=== PATIENT | female | born 1995 | race Caucasian/White ===

== ENCOUNTER 2018-10-28 23:21 | Emergency (ER) | payer OTHER, BC ==
[2018-10-28 23:34] VITALS: BP 138/83
[2018-10-29] MEDS ORDERED: HYDROCODONE/ACETAMINOPHEN 5-325 MG TABLET PO ONE (00:23)
[2018-10-29] MEDS ORDERED: CEPHALEXIN 500 MG CAPSULE PO ONE (00:23)
[2018-10-29] MEDS ORDERED: BUPIVACAINE HCL 0.5 % INJ/PF 30 ML SDV INJ ONE (00:24)
--- NOTE | 2018-10-29 00:25 | ER Document Report ---
Addendum entered and electronically signed by JORDYN PAULA NP 10/29/18 02:46: Course - Vital Signs Vital signs: Temp Pulse Resp BP Pulse Ox 98.5 F 75 18 138/83 H 100 10/28/18 23:30 10/28/18 23:30 10/28/18 23:30 10/28/18 23:30 10/28/18 23:30 Procedures - Immobilization Left Thumb Pre-Proc Neuro Vasc Exam: Normal Immobilizer type: Finger splint (Static) Performed by: PCT Post-Proc Neuro Vasc Exam: Normal Alignment checked and good: Yes - Laceration/Wound Repair Left Thumb Wound length (cm): 2 Wound's Depth, Shape: Irregular Anesthetic type: 0.5% Bupivacaine Addendum entered and electronically signed by JORDYN PAULA NP 10/29/18 02:42: Discharge - Discharge Clinical Impression: Laceration of left thumb Qualifiers: Encounter type: initial encounter Damage to nail status: with damage Foreign body presence: without foreign body Qualified Code(s): S61.112A - Laceration without foreign body of left thumb with damage to nail, initial encounter Fracture of thumb, left, open Qualifiers: Encounter type: initial encounter Phalanx: distal Fracture alignment: displaced Qualified Code(s): S62.522B - Displaced fracture of distal phalanx of left thumb, initial encounter for open fracture Condition: Stable Disposition: HOME, SELF-CARE Instructions: Cephalexin ([facility]), Fractured Finger ([facility]), Laceration Care ([facility]), Oral Narcotic Medication ([facility]), Prophylactic Antibiotic ([facility]), Temporary Splint ([facility]) Additional Instructions: Return immediately for any new or worsening symptoms Followup with your primary care provider, call tomorrow to make a followup appo intment Follow-up with Dr. Zepeda, call their office tomorrow to make a follow-up appointment Prescriptions: Cephalexin Monohydrate [Keflex 500 mg Capsule] 500 mg PO Q6H 7 Days capsule Hydrocodone/Acetaminophen [Salix 5-325 mg Tablet] 1 tab PO Q6 PRN #15 tablet PRN Reason: Forms: Return to Work Referrals: ALANIS ZEPEDA DO [ACTIVE STAFF] - Follow up tomorrow Original Note: HPI - HPI Patient complains to provider of: thumb injury Time Seen by Provider: 10/29/18 00:17 Onset: Just prior to arrival Onset/Duration: Sudden Quality of pain: Sharp Pain Level: 5 Context: Patient accidentally closed her left thumb in a safe while at work. Patient is right-hand dominant. Patient with laceration to left thumb that involves the nail. Associated Symptoms: Other - Left thumb injury Exacerbated by: Movement Relieved by: Denies Similar symptoms previously: No Recently seen / treated by doctor: No - ROS ROS below otherwise negative: Yes Systems Reviewed and Negative: Yes All other systems reviewed and negative - GASTROINTESTINAL Gastrointestinal: DENIES: Nausea - MUSCULOSKELETAL Musculoskeletal: REPORTS: Extremity pain - lac to base of thumbnail, Swelling - DERM Skin Problems: Laceration Past Medical History - General Information source: Patient - Social History Smoking Status: Never Smoker Chew tobacco use (# tins/day): No Frequency of alcohol use: None Drug Abuse: None Occupation: [employer] Lives with: Family Family History: Reviewed & Not Pertinent Patient has suicidal ideation: No Patient has homicidal ideation: No - Medical History Medical History: Negative Renal/ Medical History: Denies: Hx Peritoneal Dialysis Past Surgical History: Reports: Hx Adenoidectomy, Hx Tonsillectomy - Immunizations Immunizations up to date: Yes Hx Diphtheria, Pertussis, Tetanus Vaccination: Yes Vertical Provider Document - CONSTITUTIONAL Agree With Documented VS: Yes Exam Limitations: No Limitations General Appearance: WD/WN, No Apparent Distress - INFECTION CONTROL TRAVEL OUTSIDE OF THE [place] IN LAST 30 DAYS: No - HEENT HEENT: Atraumatic, Normocephalic - NECK Neck: Normal Inspection - RESPIRATORY Respiratory: No Respiratory Distress - CARDIOVASCULAR Pulses: Normal: Radial - MUSCULOSKELETAL/EXTREMETIES Musculoskeletal/Extremeties: MAEW, Tender - left thumb lac with partial nail avulsion - NEURO Level of Consciousness: Awake, Alert, Appropriate Motor/Sensory: No Motor Deficit - DERM Integumentary: Warm, Dry, Laceration Notes: Patient with laceration to left thumb over distal phalanx that involves the nail plate. Patient with avulsed fingernail to left thumb. Proximal edge of nail plate lacerated laterally, radial aspect of nail plate avulsed and skin overlying this area the nail plate avulsed as well. Course - Re-evaluation Re-evalutation: 10/29/18 02:22 Dr. Santos to bedside for consultation on wound repair. No additional closure methods advised at this time. Recommends outpatient follow-up with orthopedics for further management. Patient advised that she may completely lose the nail and not regrow the nail given the trauma to the nail plate. - Vital Signs Vital signs: Temp Pulse Resp BP Pulse Ox 98.5 F 75 18 138/83 H 100 10/28/18 23:30 10/28/18 23:30 10/28/18 23:30 10/28/18 23:30 10/28/18 23:30 Procedures - Laceration/Wound Repair Left Thumb Wound length (cm): 2 Wound's Depth, Shape: Irregular Laceration pre-procedure: Shur-Clens applied Anesthetic type: 0.5% Bupivacaine Wound explored: Clean Wound Debrided: Minimal Wound Repaired With: Sutures Suture Size/Type: 5:0, Nylon Number of Sutures: 3 Post-procedure wound care: Sterile dressing applied, Splint applied Post-procedure NV exam normal: Yes Complications: No Notes: 10/29/18 02:27 Was able to suture ulnar aspect of laceration, used another suture to anchor radial aspect of the nail plate to the finger. Patient with lacerated nail plate to the most proximal edge of the plate, that is in 2 pieces. Nail plate was anchored laterally. Dr. Santos to room for consultation, no additional closure method recommended at this time. Hands back picture: 1 - Laceration Discharge - Discharge Clinical Impression: Laceration of left thumb Qualifiers: Encounter type: initial encounter Damage to nail status: with damage Foreign body presence: without foreign body Qualified Code(s): S61.112A - Laceration without foreign body of left thumb with damage to nail, initial encounter Fracture of thumb, left, open Qualifiers: Encounter type: initial encounter Phalanx: distal Fracture alignment: nondisplaced Qualified Code(s): S62.525B - Nondisplaced fracture of distal phalanx of left thumb, initial encounter for open fracture Condition: Stable Disposition: HOME, SELF-CARE Instructions: Cephalexin ([facility]), Fractured Finger ([facility]), Laceration Care ([facility]), Oral Narcotic Medication ([facility]), Prophylactic Antibiotic ([facility]), Temporary Splint ([facility]) Additional Instructions: Return immediately for any new or worsening symptoms Followup with your primary care provider, call tomorrow to make a followup appointment Follow-up with Dr. Zepeda, call their office tomorrow to make a follow-up appointment Prescriptions: Cephalexin Monohydrate [Keflex 500 mg Capsule] 500 mg PO Q6H 7 Days capsule Hydrocodone/Acetaminophen [Salix 5-325 mg Tablet] 1 tab PO Q6 PRN #15 tablet PRN Reason: Forms: Return to Work Referrals: ALANIS ZEPEDA, [ACTIVE STAFF] - Follow up tomorrow
--- NOTE | 2018-10-29 01:18 | RADIOLOGY REPORT (SQ) ---
3 VIEWS OF THE LEFT THUMB HISTORY: Crush injury to thumb. COMPARISON: None. FINDINGS: There is a mildly comminuted and displaced fracture of the distal phalanx of the thumb involving the phalangeal tuft. Surrounding soft tissue swelling is seen. No radiopaque foreign body. No dislocation. IMPRESSION: Mildly comminuted and displaced fracture of the distal phalangeal tuft of the thumb.
== END 2018-10-29 03:00 | disposition home or self-care (01) ==
LOC: ER 23:21
DX: S62.522B Displaced fracture of distal phalanx of left thumb, initial encounter for open fracture (principal); W23.0XXA Caught, crushed, jammed, or pinched between moving objects, initial encounter; Y99.0 Civilian activity done for income or pay
CPT/HCPCS: 99283; 73140; 12001; J3490